=== PATIENT | female | born 1980 | race Hispanic/Latino ===

== ENCOUNTER 2022-09-14 14:41 | Emergency (ER) | payer OTHER ==
[~2022-09-14] VITALS: Ht 162.6 cm; Wt 102.1 kg
[2022-09-14 17:18] LABS: BASOPHILS % (AUTO) 0.2 % (0.0-5.0); EOSINOPHILS % (AUTO) 0.6 % (0.0-8.0); HEMATOCRIT 37.6 % (36-48); LYMPHOCYTES % (AUTO) 16.4 % (21.0-51.0); MEAN CORPUSCULAR HGB CONC 31.9 g/dL (32.0-36.0); MEAN CORPUSCULAR VOLUME 84.7 fL (79-99); MONOCYTES % (AUTO) 9.6 % (3.0-13.0); PLATELET COUNT (AUTO) 278 K/uL (130-400); RED BLOOD CELL COUNT(AUTO) 4.44 MIL/uL (4.00-5.50); RED CELL DISTRIBUTION WIDTH 14.1 % (11.0-15.5); WHITE BLOOD COUNT (AUTO) 5.2 K/uL (4.8-10.8)
[2022-09-14 17:26] LABS: APPEARANCE,URINE CLOUDY (CLEAR); BILIRUBIN,URINE NEGATIVE (NEGATIVE); COLOR,URINE LIGHT-YELLOW (YELLOW); GLUCOSE, URINE (UA) NEGATIVE (NEGATIVE); KETONES,URINE 20 mg/dL (NEGATIVE); LEUKOCYTE ESTERASE ,URINE NEGATIVE Leu/uL (NEGATIVE); NITRATE,URINE NEGATIVE (NEGATIVE); OCCULT BLOOD,URINE MODERATE (NEGATIVE); PH,URINE 5.5 (5.0-8.0); PROTEIN,URINE NEGATIVE (NEGATIVE); UROBILINOGEN,URINE 0.2 mg/dL (0.2-1.0)
[2022-09-14 17:29] LABS: BACTERIA,URINE RARE /HPF (None Seen); MUCUS,URINE RARE LPF (None Seen); SQUAMOUS EPITHELIAL CELL,UR FEW /HPF (0-2); YEAST,URINE BUDDING FEW /HPF (None Seen)
[2022-09-14 17:30] LABS: HCG,QUALITATIVE URINE NEGATIVE (NEGATIVE)
[2022-09-14 17:57] LABS: CREATININE 0.6 mg/dL (0.5-1.5); POTASSIUM 3.3 mmol/L (3.5-5.1)
[2022-09-14 18:01] LABS: ALBUMIN 3.5 g/dL (3.5-5.0); TOTAL PROTEIN, SERUM 7.9 g/dL (6.0-8.3)
[2022-09-14] MEDS ORDERED: ONDANSETRON 4MG INJ IVP ONE (18:30)
[2022-09-14] MEDS ORDERED: 0.9%NACL 1000ML 1,000 ML IV ONE (18:30)
[2022-09-14] MEDS ORDERED: MORPHINE 4 MG SYG IVP ONE (18:30)
[2022-09-14] MEDS ORDERED: PANTOPRAZOLE 40 MG/VIAL IVP ONE (18:30)
[2022-09-14] MEDS ORDERED: IOHEXOL 350 MG/ML 100ML INFUS..BTL IV ONE (19:07)
[2022-09-14] MEDS ORDERED: KETOROLAC 30MG VIAL (30MG/ML) ONE (20:20)
[2022-09-14] MEDS ORDERED: KETOROLAC 30MG VIAL (30MG/ML) IVP ONE (20:30)
[2022-09-14] MEDS ORDERED: DICY20TA2 PO (21:12)
[2022-09-14] MEDS ORDERED: ONDA-104 PO (21:12)
[2022-09-14] MEDS ORDERED: IBUP-2070 PO (21:12)
[2022-09-14] MEDS ORDERED: AMOX-426 PO (21:12)
[2022-09-14] MEDS ORDERED: PANT40TA54 PO (21:12)
[2022-09-14 21:23] VITALS: BP 128/74
== END 2022-09-14 21:40 | disposition home or self-care (01) ==
LOC: EDH 14:41
DX: K52.9 Noninfective gastroenteritis and colitis, unspecified (principal); I88.0 Nonspecific mesenteric lymphadenitis
CPT/HCPCS: 99285; 74177; 96374; 96375; 76705; 96361; 84484; 80053; 83690; 85025; 81001; 81025; 36415; 93005; J7030; J2405; J2270; J1885; C9113; Q9967